=== PATIENT | female | born 1995 ===

== ENCOUNTER 2020-08-31 07:33 | Emergency (ER) | payer SELFPAY ==
[2020-08-31 07:39] VITALS: BP 157/65
[2020-08-31 09:51] LABS: Bilirubin,Urine NEG (Negative); Blood,Urine NEG (Negative); Color,Urine Yellow (Yellow); Mucus,Urine 3+ /HPF
[2020-08-31 09:56] LABS: HCG Qualitative,Urine Negative (Negative)
--- NOTE | 2020-08-31 10:07 | Event Note ---
ED Screening Note Date of service: 08/31/20 Time: 10:05 ED Screening Note: Patient complains of lower abdominal pain and cramping Denies vaginal bleeding or urinary symptoms States pain radiates to her low back Tenderness to palpation of the lower abdomen and periumbilical area noted on exam This initial assessment/diagnostic orders/clinical plan/treatment(s) is/are subject to change based on patients health status, clinical progression and re- assessment by fellow clinical providers in the ED. Further treatment and workup at subsequent clinical providers discretion. Patient/guardian urged not to elope from the ED as their condition may be serious if not clinically assessed and managed. Initial orders include: Labs
[2020-08-31 10:45] LABS: Hematocrit 35.1 % (30.3-42.9); Hemoglobin 11.4 gm/dl (10.1-14.3); Mean Corpuscular HGB Conc 33 % (30-34); Mean Corpuscular Volume 72 fl (79-97); Platelet Count 335 K/mm3 (140-440); Red Blood Count 4.86 M/mm3 (3.65-5.03); Red Cell Distribution Width 16.6 % (13.2-15.2)
[2020-08-31 11:05] LABS: Alanine Aminotransferase 21 units/L (7-56); Albumin 4.3 g/dL (3.9-5); Blood Urea Nitrogen 7 mg/dL (7-17); Calcium 9.5 mg/dL (8.4-10.2); Hemolysis Index 0
[2020-08-31 11:14] LABS: BUN/Creatinine Ratio 12
[2020-08-31] MEDS ORDERED: KETOROLAC 10 MG TAB PO ONE (11:31)
--- NOTE | 2020-08-31 11:42 | Emergency Department Report ---
ED Female HPI - General Chief complaint: Abdominal Pain Stated complaint: PELVIC PAIN Time Seen by Provider: 08/31/20 11:15 Source: patient Mode of arrival: Ambulatory Limitations: No Limitations - History of Present Illness Initial comments: Patient is a 25-year-old female presents emergency room complaints of pelvic pain that began 5 days ago. She denies any dysuria, urinary frequency, dark urine, odor to the urine, nausea, vomiting, diarrhea, fever, vaginal bleeding, vaginal discharge, vaginal irritation or odor. She states that she has irre gular menstrual cycles and previously used to have an IUD but no longer has one. She states that she has an PHYSICIAN GYNECOLOGIST Dr. Baker who she last saw in May and she states that she had a full work-up at that time but was not having pelvic pain then. She states that she is sexually active without protection with only one partner. She denies any concerns for STDs and states that she was just tested in May and does not want any testing or prophylactic treatment. She denies any past medical history. No allergies to medications. - Related Data Previous Rx's Medication Instructions Recorded Last Taken Type Naproxen [EC-Naprosyn] 500 mg PO BID PRN #14 tablet. 08/31/20 Unknown Rx cephALEXin [Keflex] 500 mg PO BID 7 Days #14 cap 08/31/20 Unknown Rx Allergies Allergy/AdvReac Type Severity Reaction Status Date / Time No Known Allergies Allergy Unverified 08/31/20 07:36 ED Review of Systems ROS: Stated complaint: PELVIC PAIN Other details as noted in HPI Comment: All other systems reviewed and negative ED Past Medical Hx - Past Medical History Previous Medical History?: No - Surgical History Past Surgical History?: No - Social History Smoking Status: Never Smoker Substance Use Type: None - Medications Home Medications: Home Medications Medication Instructions Recorded Confirmed Last Taken Type Naproxen [EC-Naprosyn] 500 mg PO BID PRN #14 tablet. 08/31/20 Unknown Rx cephALEXin [Keflex] 500 mg PO BID 7 Days #14 cap 08/31/20 Unknown Rx ED Physical Exam - General Limitations: No Limitations General appearance: alert, in no apparent distress - Head Head exam: Present: atraumatic, normocephalic - Eye Eye exam: Present: normal appearance - ENT ENT exam: Present: mucous membranes moist - Respiratory Respiratory exam: Present: normal lung sounds bilaterally. Absent: respiratory distress, wheezes, rales, rhonchi, stridor, chest wall tenderness, accessory muscle use, decreased breath sounds, prolonged expiratory - Cardiovascular Cardiovascular Exam: Present: regular rate, normal rhythm, normal heart sounds. Absent: systolic murmur, diastolic murmur, rubs, gallop - GI/Abdominal GI/Abdominal exam: Present: soft, tenderness (suprapubic), normal bowel sounds. Absent: distended, guarding, rebound, rigid - Neurological Exam Neurological exam: Present: alert, oriented X3 - Psychiatric Psychiatric exam: Present: normal affect, normal mood - Skin Skin exam: Present: warm, dry, intact ED Course Vital Signs 08/31/20 08/31/20 07:36 11:40 Temperature 98.4 F Pulse Rate 86 Respiratory 18 18 Rate Blood Pressure 157/65 O2 Sat by Pulse 98 Oximetry ED Medical Decision Making - Lab Data Result diagrams: 08/31/20 10:08 08/31/20 10:05 Lab Results 08/31/20 08/31/20 08/31/20 Range/Units 10:05 10:08 Unknown WBC 9.4 (4.5-11.0) K/mm3 RBC 4.86 (3.65-5.03) M/mm3 Hgb 11.4 (10.1-14.3) gm/dl Hct 35.1 (30.3-42.9) % MCV 72 L (79-97) fl MCH 24 L (28-32) pg MCHC 33 (30-34) % RDW 16.6 H (13.2-15.2) % Plt Count 335 (140-440) K/mm3 Baso % (Auto) [employer] Add Manual Diff Complete Total Counted 100 Seg Neuts % (Manual) 75.0 H (40.0-70.0) % Lymphocytes % (Manual) 22.0 (13.4-35.0) % Monocytes % (Manual) 2.0 (0.0-7.3) % Eosinophils % (Manual) 1.0 (0.0-4.3) % Nucleated RBC % Not Reportable Seg Neutrophils # Man 7.1 (1.8-7.7) K/mm3 Band Neutrophils # 0.0 K/mm3 Lymphocytes # (Manual) 2.1 (1.2-5.4) K/mm3 Abs React Lymphs (Man) 0.0 K/mm3 Monocytes # (Manual) 0.2 (0.0-0.8) K/mm3 Eosinophils # (Manual) 0.1 (0.0-0.4) K/mm3 Basophils # (Manual) 0.0 (0.0-0.1) K/mm3 Metamyelocytes # 0.0 K/mm3 Myelocytes # 0.0 K/mm3 Promyelocytes # 0.0 K/mm3 Blast Cells # 0.0 K/mm3 WBC Morphology Not Reportable Hypersegmented Neuts Not Reportable Hyposegmented Neuts Not Reportable Hypogranular Neuts Not Reportable Smudge Cells Not Reportable Toxic Granulation Not Reportable Toxic Vacuolation Not Reportable Dohle Bodies Not Reportable Pelger-Huet Anomaly Not Reportable Gigi Rods Not Reportable Platelet Estimate Consistent w auto Clumped Platelets Not Reportable Plt Clumps, EDTA Not Reportable Large Platelets Not Reportable Giant Platelets Not Reportable Platelet Satelliting Not Reportable Plt Morphology Comment Not Reportable RBC Morphology Not Reportable Dimorphic RBCs Not Reportable Polychromasia Not Reportable Hypochromasia 1+ Poikilocytosis Not Reportable Anisocytosis Not Reportable Microcytosis Not Reportable Macrocytosis Not Reportable Spherocytes Not Reportable Pappenheimer Bodies Not Reportable Sickle Cells Not Reportable Target Cells Not Reportable Tear Drop Cells Not Reportable Ovalocytes Not Reportable Helmet Cells Not Reportable Becerra-Meridian Bodies Not Reportable [place] Rings Not Reportable [place] Cells Not Reportable Bite Cells Not Reportable Crenated Cell Not Reportable Elliptocytes 1+ Acanthocytes (Spur) Not Reportable Rouleaux Not Reportable Hemoglobin C Crystals Not Reportable Schistocytes Few Malaria parasites Not Reportable Virgilio Bodies Not Reportable Hem Pathologist Commnt No Sodium 143 (137-145) mmol/L Potassium 4.5 (3.6-5.0) mmol/L Chloride 106.7 (98-107) mmol/L Carbon Dioxide 28 (22-30) mmol/L Anion Gap 13 mmol/L BUN 7 (7-17) mg/dL Creatinine 0.6 (0.6-1.2) mg/dL Estimated GFR > 60 ml/min BUN/Creatinine Ratio 12 % Glucose 92 (65-100) mg/dL Calcium 9.5 (8.4-10.2) mg/dL Total Bilirubin 0.40 (0.1-1.2) mg/dL AST 20 (5-40) units/L ALT 21 (7-56) units/L Alkaline Phosphatase 86 (35-129) units/L Total Protein 7.8 (6.3-8.2) g/dL Albumin 4.3 (3.9-5) g/dL Albumin/Globulin Ratio 1.2 % Lipase 21 (13-60) units/L Urine Color Yellow (Yellow) Urine Turbidity Clear (Clear) Urine pH 6.0 (5.0-7.0) Ur Specific [place] 1.030 (1.003-1.030) Urine Protein 30 mg/dl (Negative) mg/dL Urine Glucose (UA) Neg (Negative) mg/dL Urine Ketones Neg (Negative) mg/dL Urine Blood Neg (Negative) Urine Nitrite Neg (Negative) Urine Bilirubin Neg (Negative) Urine Urobilinogen 2.0 (<2.0) mg/dL Ur Leukocyte Esterase Tr (Negative) Urine WBC (Auto) 9.0 H (0.0-6.0) /HPF Urine RBC (Auto) 8.0 (0.0-6.0) /HPF U Epithel Cells (Auto) 9.0 (0-13.0) /HPF Urine Mucus 3+ /HPF Urine HCG, Qual Negative (Negative) - Radiology Data Radiology results: report reviewed Ordering Physician: MAYE ALEJANDRA Date of Service: 08/31/20 Procedure(s): US transvaginal Accession Number(s): [id number] cc: MAYE ALEJANDRA EXAMINATION: Complete pelvic ultrasound, 08/31/2020 CLINICAL INFORMATION: Pelvic pain COMPARISON: None. FINDINGS: The uterus is normal in size measuring 9.2 x 4.5 x 5.4 cm. The endometrial thickness measures a maximum of 7 mm. The bilateral adnexal regions appear within normal limits. There is a 2.3 cm left adnexal cyst. Doppler flow is demonstrated to both adnexal regions. There is a trace amount of free pelvic fluid. IMPRESSION: 1. No sonographic evidence of acute intrapelvic abnormality. 2. Left adnexal cyst. Signer Name: Andreina Perez MD Signed: 08/31/2020 12:26 PM Workstation Name: [id number] Transcribed By: EB Dictated By: Andreina Perez MD Electronically Authenticated By: Andreina Perez MD Signed Date/Time: 08/31/20 1226 DD/ 1223 TD/TT: - Medical Decision Making Patient is a 25-year-old female presents emergency room complaints of pelvic pain that began 5 days ago. She denies any dysuria, urinary frequency, dark urine, odor to the urine, nausea, vomiting, diarrhea, fever, vaginal bleeding, vaginal discharge, vaginal irritation or odor. She states that she has irregula r menstrual cycles and previously used to have an IUD but no longer has one. She states that she has an PHYSICIAN GYNECOLOGIST Dr. Baker who she last saw in May and she states that she had a full work-up at that time but was not having pelvic pain then. She states that she is sexually active without protection with only one partner. She denies any concerns for STDs and states that she was just tested in May and does not want any testing or prophylactic treatment. She denies any past medical history. No allergies to medications. VSS. On exam patient has suprapubic abdominal tenderness to palpation, no guarding, no rebound, no rigidity, normal bowel sounds, no peritoneal signs. UA shows evid ence of mild UTI. Pelvic ultrasound: 1. No sonographic evidence of acute intrapelvic abnormality. 2. Left adnexal cyst. Patient given p.o. Toradol in the emergency department and symptoms improved and she was feeling much better and ready to go home. Discussed all results with patient and answered questions. Discussed the importance of PHYSICIAN GYNECOLOGIST follow-up. Patient given prescription for Keflex and naproxen. Advised patient please take medication as prescribed. Increase your water intake. Follow-up with your primary care doctor. Follow-up with your PHYSICIAN GYNECOLOGIST. Return to emergency room for any new or worsening symptoms. - Differential Diagnosis Ovarian cyst, fibroids, UTI, endometriosis, adenomyosis, STD, PID Critical care attestation.: If time is entered above; I have spent that time in minutes in the direct care of this critically ill patient, excluding procedure time. ED Disposition Clinical Impression: Pelvic pain, Left ovarian cyst UTI (urinary tract infection) Qualifiers: Urinary tract infection type: acute cystitis Hematuria presence: without hematuria Qualified Code(s): N30.00 - Acute cystitis without hematuria Disposition: TO HOME OR SELFCARE Is pt being admited?: No Does the pt Need Aspirin: No Condition: Stable Instructions: Urinary Tract Infection, Adult, Ovarian Cyst, Abdominal Pain (ED) Additional Instructions: please take medication as prescribed. Increase your water intake. Follow-up with your primary care doctor. Follow-up with your PHYSICIAN GYNECOLOGIST. Return to emergency room for any new or worsening symptoms. Prescriptions: Naproxen [EC-Naprosyn] 500 mg PO BID PRN #14 tablet.dr PRN Reason: pain cephALEXin [Keflex] 500 mg PO BID 7 Days #14 cap Referrals: PRIMARY CAREMD [Primary Care Provider] - 2-3 Days TEN SUN MD [Staff Physician] - 2-3 Days Time of Disposition: 12:44 Print Language: KYRGYZ
--- NOTE | 2020-08-31 12:30 | Ultrasound Report ---
EXAMINATION: Complete pelvic ultrasound, 08/31/2020 CLINICAL INFORMATION: Pelvic pain COMPARISON: None. FINDINGS: The uterus is normal in size measuring 9.2 x 4.5 x 5.4 cm. The endometrial thickness measures a maxim um of 7 mm. The bilateral adnexal regions appear within normal limits. There is a 2.3 cm left adnexal cyst. Doppl er flow is demonstrated to both adnexal regions. There is a trace amount of free pelvic fluid. IMPRESSION: 1. No sonographic evidence of acute intrapelvic abnormality. 2. Left adnexal cyst. Signer Name: Andreina Perez MD Signed: 08/31/2020 12:26 PM Workstation Name: [id number]
[2020-08-31 14:32] LABS: Total Cells Counted 100
[2020-08-31 14:33] LABS: Hypochromasia 1+
[2020-08-31 14:34] LABS: Platelet Estimate Consistent w Auto; Schistocytes Few
== END 2020-08-31 13:23 | disposition home or self-care (01) ==
LOC: ED 07:33
DX: N39.0 Urinary tract infection, site not specified (principal); R10.2 Pelvic and perineal pain; N83.202 Unspecified ovarian cyst, left side; Z79.899 Other long term (current) drug therapy
CPT/HCPCS: 36415; 76830; 76856; 80053; 81001; 81025; 83690; 85007; 85025; 87086

== ENCOUNTER 2020-09-25 05:43 | Emergency (ER) | payer SELFPAY ==
--- NOTE | 2020-09-25 05:57 | Event Note ---
ED Screening Note Date of service: 09/25/20 Time: 05:56 ED Screening Note: Patient is a 25-year-old female who presents for right upper chest and right flank pain x3 days. Pain described as 5/10 with urinary frequency and dysuria. Patient denies fevers or chills. Denies history of GERD or gallstones. Symptoms are exacerbated by p.o. intake. Symptoms are relieved by nothing tried. There is associated nausea no vomiting at this time. This initial assessment/diagnostic orders/clinical plan/treatment(s) is/are subject to change based on patients health status, clinical progression and re- assessment by fellow clinical providers in the ED. Further treatment and workup at subsequent clinical providers discretion. Patient/guardian urged not to elope from the ED as their condition may be serious if not clinically assessed and managed. Initial orders include: CMP, CBC, Lipase, UA, HCG
[2020-09-25] MEDS ORDERED: SODIUM CHLORIDE 0.9% 1000 ML 1,000 ML IV ONE (06:24)
[2020-09-25] MEDS ORDERED: ONDANSETRON 4 MG/2 ML INJ IV ONE (06:24)
[2020-09-25] MEDS ORDERED: MORPHINE 2 MG/1 ML INJ IV ONE (06:24)
[2020-09-25 06:28] LABS: Basophils % (Auto) 0.2 % (0.0-1.8); Eosinophils # (Auto) 0.1 K/mm3 (0.0-0.4); Eosinophils % (Auto) 1.2 % (0.0-4.3); Hematocrit 35.1 % (30.3-42.9); Hemoglobin 11.3 gm/dl (10.1-14.3); Lymphocytes # (Auto) 2.1 K/mm3 (1.2-5.4); Lymphocytes % (Auto) 23.4 % (13.4-35.0); Mean Corpuscular HGB Conc 32 % (30-34); Mean Corpuscular Volume 72 fl (79-97); Monocytes # (Auto) 0.4 K/mm3 (0.0-0.8); Monocytes % (Auto) 4.5 % (0.0-7.3); Platelet Count 346 K/mm3 (140-440); Red Blood Count 4.85 M/mm3 (3.65-5.03); Red Cell Distribution Width 17.1 % (13.2-15.2)
--- NOTE | 2020-09-25 06:29 | Emergency Department Report ---
ED General Adult HPI - General Chief complaint: Chest Pain Stated complaint: CHEST/SIDE/BACK PAIN Time Seen by Provider: 09/25/20 06:09 Source: patient Mode of arrival: Ambulatory Limitations: No Limitations - History of Present Illness Initial comments: This is the second time in approximately 1 month for this 25-year old lady to present to the emergency department with multiple complaints of subacute nature. This time she states that she has had diffuse pain involving both sides of the pelvis anterior abdomen both sides of the lateral flank and the anterior chest but not the arms for 3 to 4 days. She states that the pain is dull and constant. She cannot describe the point of maximum intensity. She states that she has "foamy" stools. She thinks he might of had a chill but is sure she did not have a fever. She does not describe respiratory symptoms. She states that she is "not urinating". Patient states that she has had 3 children, no surgery and takes no regular medication. Apparently she does not see primary care. She was referred to [facility] CON[facility]OR OPERATOR after her last visit. At that time she did have multiple [employer] CONVEYOR OPERATOR complaints and was found to have an ovarian cyst: Patient is a 25-year-old female presents emergency room complaints of pelvic pain that began 5 days ago. She denies any dysuria, urinary frequency, dark urine, odor to the urine, nausea, vomiting, diarrhea, fever, vaginal bleeding, vaginal discharge, vaginal irritation or odor. She states that she has irregular menstrual cycles and previously used to have an IUD but no longer has one. She states that she has an BUS MECHANIC Dr. Baker who she last saw in May and she states that she had a full work-up at that time but was not having pelvic pain then. She states that she is sexually active without protection with only one partner. She denies any concerns for STDs and states that she was just tested in May and does not want any testing or prophylactic treatment. She denies any past medical history. No allergies to medications. VSS. On exam patient has suprapubic abdominal tenderness to palpation, no guarding, no rebound, no rigidity, normal bowel sounds, no peritoneal signs. UA shows evidence of mild UTI. Pelvic ultrasound: 1. No sonographic evidence of acute intrapelvic abnormality. 2. Left adnexal cyst. Patient given p.o. Toradol in the emergency department and symptoms improved and she was feeling much better and ready to go home. Discussed all results with patient and answered questions. Discussed the importance of BUS MECHANIC follow-up. Patient given prescription for Keflex and naproxen. Advised patient please take medication as prescribed. Increase your water intake. Follow-up with your primary care doctor. Follow-up with your BUS MECHANIC. Return to emergency room for any new or worsening symptoms. -: Gradual, days(s) (3 to 4 days) Location: chest, back (Lateral flank), abdomen Radiation: non-radiation Quality: aching Improves with: none Worsens with: none Associated Symptoms: denies other symptoms, fever/chills (See above), other (See above, foamy stools, decreased urine output) Treatments Prior to Arrival: none - Related Data Previous Rx's Medication Instructions Recorded Last Taken Type Naproxen [EC-Naprosyn] 500 mg PO BID PRN #14 tablet. 08/31/20 Unknown Rx cephALEXin [Keflex] 500 mg PO BID 7 Days #14 cap 08/31/20 Unknown Rx cefUROXime [Ceftin] 250 mg PO Q12H #10 tablet 09/25/20 Unknown Rx traMADoL [Ultram] 50 mg PO Q6HR PRN #14 tablet 09/25/20 Unknown Rx Allergies Allergy/AdvReac Type Severity Reaction Status Date / Time No Known Allergies Allergy Verified 09/25/20 06:36 ED Review of Systems ROS: Stated complaint: CHEST/SIDE/BACK PAIN Other details as noted in HPI Constitutional: denies: chills, fever Eyes: denies: eye pain, eye discharge, vision change ENT: denies: ear pain, throat pain Respiratory: denies: cough, shortness of breath, wheezing Cardiovascular: chest pain. denies: palpitations Endocrine: no symptoms reported Gastrointestinal: abdominal pain, other ("Foamy stools). denies: nausea, diarrhea Genitourinary: other (Decreased output). denies: urgency, dysuria, discharge Musculoskeletal: back pain (Lateral flank). denies: joint swelling, arthralgia Skin: denies: rash, lesions Neurological: denies: headache, weakness, paresthesias Psychiatric: denies: anxiety, depression Hematological/Lymphatic: denies: easy bleeding, easy bruising ED Past Medical Hx - Past Medical History Previous Medical History?: No - Surgical History Past Surgical History?: No - Social History Smoking Status: Never Smoker Substance Use Type: None - Medications Home Medications: Home Medications Medication Instructions Recorded Confirmed Last Taken Type Naproxen [EC-Naprosyn] 500 mg PO BID PRN #14 tablet. 08/31/20 Unknown Rx cephALEXin [Keflex] 500 mg PO BID 7 Days #14 cap 08/31/20 Unknown Rx cefUROXime [Ceftin] 250 mg PO Q12H #10 tablet 09/25/20 Unknown Rx traMADoL [Ultram] 50 mg PO Q6HR PRN #14 tablet 09/25/20 Unknown Rx ED Physical Exam - General Limitations: Physical Limitation General appearance: alert, in no apparent distress, obese - Head Head exam: Present: atraumatic, normocephalic - Eye Eye exam: Present: normal appearance. Absent: PERRL, EOMI, scleral icterus - ENT ENT exam: Present: mucous membranes moist - Neck Neck exam: Present: normal inspection - Respiratory Respiratory exam: Present: normal lung sounds bilaterally. Absent: respiratory distress - Cardiovascular Cardiovascular Exam: Present: regular rate, normal rhythm. Absent: systolic murmur, diastolic murmur, rubs, gallop - GI/Abdominal GI/Abdominal exam: Present: soft, normal bowel sounds. Absent: distended, tenderness, guarding, rebound, rigid - Extremities Exam Extremities exam: Present: normal inspection. Absent: calf tenderness - Back Exam Back exam: Present: normal inspection. Absent: CVA tenderness (R), CVA tenderness (L), muscle spasm, paraspinal tenderness, vertebral tenderness - Neurological Exam Neurological exam: Present: alert, oriented X3, CN II-XII intact. Absent: motor sensory deficit - Psychiatric Psychiatric exam: Present: normal mood, anxious - Skin Skin exam: Present: warm, dry, intact, normal color. Absent: rash ED Course Vital Signs 09/25/20 09/25/20 09/25/20 05:47 06:15 06:31 Temperature 98.5 F Pulse Rate 69 78 59 L Respiratory 18 18 19 Rate Blood Pressure 155/68 144/90 126/63 Blood Pressure [Left] O2 Sat by Pulse 99 99 100 Oximetry 09/25/20 07:23 Temperature 97.6 F Pulse Rate 72 Respiratory 15 Rate Blood Pressure Blood Pressure 128/74 [Left] O2 Sat by Pulse 99 Oximetry - Reevaluation(s) Reevaluation #1: Patient is exam remains benign. She is found in no distress times several. CT was negative. Appropriate for outpatient referral. She will be treated empirically for UTI given analgesia. 09/25/20 10:19 ED Medical Decision Making - Lab Data Result diagrams: 09/25/20 06:04 09/25/20 06:51 - EKG Data -: EKG Interpreted by Me EKG shows normal: sinus rhythm, axis, intervals, QRS complexes, ST-T waves Rate: normal - EKG Data Mild sinus arrhythmia 09/25/20 06:36 Critical care attestation.: If time is entered above; I have spent that time in minutes in the direct care of this critically ill patient, excluding procedure time. ED Disposition Clinical Impression: Atypical chest pain Abdominal pain Qualifiers: Abdominal location: generalized Qualified Code(s): R10.84 - Generalized abdominal pain UTI (urinary tract infection) Qualifiers: Urinary tract infection type: site unspecified Hematuria presence: without hematuria Qualified Code(s): N39.0 - Urinary tract infection, site not specified Disposition: TO HOME OR SELFCARE Is pt being admited?: No Does the pt Need Aspirin: No Instructions: Urinary Tract Infection, Adult, [id number], Abdominal Pain, Adult, [id number], Nonspecific Chest Pain, Adult, [id number], Chest Pain (ED) Additional Instructions: Return any acute change or worsening symptoms. Prescriptions: cefUROXime [Ceftin] 250 mg PO Q12H #10 tablet traMADoL [Ultram] 50 mg PO Q6HR PRN #14 tablet PRN Reason: Pain Referrals: PRIMARY CARE, [Primary Care Provider] - 3-5 Days [facility] [Provider Group] - 2-3 Days Time of Disposition: 10:21 HEART Score - HEART Score History: Slightly suspicious EKG: Normal Age: < 45 Risk factors: No known risk factors Troponin: Troponin T < 0.010 ng/mL (0.00-0.029) 09/25/20 06:51 Troponin: < normal limit HEART Score: 0 - Critical Actions Critical Actions: 0-3 pts:0.9-1.7%risk of adverse cardiac event.Candidate for discharge JASKARAN score - Jaskaran Score Age > 65: (0) No Aspirin use within the Past 7 Days: (0) No 3 or more CAD Risk Factors: (0) No 2 or more Angina events in past 24 hrs: (0) No Known CAD with more than 50% Stenosis: (0) No Elevated Cardiac Markers: (0) No ST Deviation Greater than 0.5mm: (0) No JASKARAN Score: 0
[2020-09-25] MEDS ORDERED: diphenhydrAMINE 50 MG/ML VIAL ONE (06:34)
[2020-09-25] MEDS ORDERED: diphenhydrAMINE 50 MG/ML VIAL IV ONE (06:34)
[2020-09-25 06:41] LABS: Alanine Aminotransferase 13 units/L (7-56); Albumin 4.1 g/dL (3.9-5); Blood Urea Nitrogen 12 mg/dL (7-17); Calcium 8.7 mg/dL (8.4-10.2); Hemolysis Index 2
[2020-09-25 06:44] LABS: BUN/Creatinine Ratio 17
[2020-09-25 07:39] LABS: HCG Qualitative,Urine Negative (Negative)
[2020-09-25 07:41] LABS: Bilirubin,Urine NEG (Negative); Blood,Urine SM (Negative); Color,Urine Yellow (Yellow); Mucus,Urine 2+ /HPF; Protein,Urine <15 mg/dL mg/dL (Negative); Urobilinogen,Urine < 2.0 mg/dL (<2.0)
[2020-09-25 07:45] LABS: Alanine Aminotransferase 14 units/L (7-56); Albumin 4.1 g/dL (3.9-5); Creatine Kinase MB 1.3 ng/mL (0.0-4.0)
[2020-09-25 07:48] LABS: Bilirubin,Direct < 0.2 mg/dL (0-0.2)
[2020-09-25 08:02] LABS: Blood Urea Nitrogen 12 mg/dL (7-17); Calcium 8.7 mg/dL (8.4-10.2); Hemolysis Index 6
[2020-09-25 08:23] LABS: BUN/Creatinine Ratio 17
--- NOTE | 2020-09-25 10:02 | Cat Scan Report ---
CT ABDOMEN AND PELVIS WITH CONTRAST INDICATION / CLINICAL INFORMATION: Diffuse abdominal pain. TECHNIQUE: Axial CT images were obtained through the abdomen and pelvis after 100 cc Omnipaque [address] scans at this location are performed using CT dose reduction for ALARA by means of automated exposure control. COMPARISON: None available. FINDINGS: LOWER CHEST: No significant abnormality. LIVER: No significant abnormality. GALLBLADDER: No significant abnormality. BILE DUCTS: No significant abnormality. PANCREAS: No significant abnormality. SPLEEN: No significant abnormality. ADRENALS: No significant abnormality. RIGHT KIDNEY and URETER: No significant abnormality. LEFT KIDNEY and URETER: No significant abnormality. STOMACH and SMALL BOWEL: No significant abnormality. COLON: No significant abnormality. APPENDIX: No significant abnormality. PERITONEUM: No free fluid. No free air. No fluid collection. LYMPH NODES: No significant adenopathy. AORTA and ARTERIES: No significant abnormality. IVC and VEINS: No significant abnormality. URINARY BLADDER: No significant abnormality. REPRODUCTIVE ORGANS: No significant abnormality. ADDITIONAL FINDINGS: None. SKELETAL SYSTEM: No acute abnormality. IMPRESSION: 1. No significant abnormality. Signer Name: Grayson Umanzor MD Signed: 09/25/2020 9:57 AM Workstation Name: [id number]
[2020-09-25 10:44] VITALS: BP 137/69
== END 2020-09-25 10:44 | disposition home or self-care (01) ==
LOC: ED 05:43
DX: N39.0 Urinary tract infection, site not specified (principal); R07.89 Other chest pain; R10.9 Unspecified abdominal pain; Z79.899 Other long term (current) drug therapy
CPT/HCPCS: 36415; 74177; 80048; 80053; 80076; 81001; 81025; 82550; 82553; 83690; 83735; 84484; 84702; 85025; 93005; 96361; 96374; 96375; 99284; J1200; J2270; J2405; J7030; Q9967

== ENCOUNTER 2021-03-29 22:50 | Emergency (ER) | payer SELFPAY ==
[2021-03-29 23:04] VITALS: BP 160/90
--- NOTE | 2021-03-29 23:59 | XRay Report ---
CHEST 2 VIEWS INDICATION: chestpain. COMPARISON: None FINDINGS: SUPPORT DEVICES: None. HEART: Within normal limits. LUNGS/PLEURA: No acute air space or interstitial disease. No pneumothorax. ADDITIONAL FINDINGS: None. IMPRESSION: 1. No acute findings. Signer Name: Corey Polanco MD Signed: 03/29/2021 11:54 PM Workstation Name: [id number]
--- NOTE | 2021-03-30 01:40 | Emergency Department Report ---
ED General Adult HPI - General Chief complaint: Chest Pain Stated complaint: CHEST PAIN Source: patient Mode of arrival: Ambulatory Limitations: No Limitations - History of Present Illness Initial comments: Patient is a 25-year-old white female with a history of morbid obesity, anxiety and chronic costochondritis who presents to the ED with complaints of persistent elevated heart rate and anterior chest wall pain for the last 3 months, worse in the last 2 hours prior to arrival in the ED. Patient states that the chest pain has been intermittent and prior to arrival in the ED her heart rate was significantly elevated and that she started feeling tingling sensation in both upper and lower extremities. Patient denies shortness of breath, diaphoresis, nausea, vomiting, abdominal pain, traumatic injury, heavy lifting, back pain, change in vision, dizziness, syncope, cough, fever and chills MD Complaint: Elevated heart rate, chronic chest wall pain; anxiety -: Gradual, month(s) (3) Location: chest Radiation: non-radiation Severity scale (0 -10): 6 Quality: aching, sharp Consistency: intermittent Improves with: none Worsens with: none Associated Symptoms: denies other symptoms, chest pain. denies: confusion, cough, diaphoresis, fever/chills, headaches, loss of appetite, malaise, nausea/vomiting, rash, seizure, shortness of breath, syncope, weakness Treatments Prior to Arrival: none - Related Data Previous Rx's Medication Instructions Recorded Last Taken Type cephALEXin [Keflex] 500 mg PO BID 7 Days #14 cap 08/31/20 Unknown Rx cefUROXime [Ceftin] 250 mg PO Q12H #10 tablet 09/25/20 Unknown Rx traMADoL [Ultram] 50 mg PO Q6HR PRN #14 tablet 09/25/20 Unknown Rx Famotidine [Pepcid] 20 mg PO BID #60 tablet 03/30/21 Unknown Rx Naproxen [EC-Naprosyn] 500 mg PO BID PRN #20 tablet. 03/30/21 Unknown Rx hydrOXYzine PAMOATE [Vistaril] 50 mg PO QHS PRN #30 capsule 03/30/21 Unknown Rx Allergies Allergy/AdvReac Type Severity Reaction Status Date / Time No Known Allergies Allergy Verified 09/25/20 06:36 ED Review of Systems ROS: Stated complaint: CHEST PAIN Other details as noted in HPI Constitutional: denies: chills, fever, malaise, weakness Eyes: denies: eye pain, eye discharge, vision change ENT: denies: ear pain, throat pain Respiratory: denies: cough, shortness of breath, wheezing Cardiovascular: chest pain (Anterior chest pain intermittently), other (Elevated heart rate). denies: palpitations Endocrine: no symptoms reported Gastrointestinal: denies: abdominal pain, nausea, vomiting, diarrhea Genitourinary: denies: urgency, dysuria, discharge Musculoskeletal: denies: back pain, joint swelling, arthralgia Skin: denies: rash, lesions Neurological: denies: headache, weakness, paresthesias Psychiatric: anxiety. denies: depression Hematological/Lymphatic: denies: easy bleeding, easy bruising ED Past Medical Hx - Past Medical History Previous Medical History?: No Hx Psychiatric Treatment: Yes (Anxiety) Additional medical history: Morbid Obesity, chronic costochondritis - Surgical History Past Surgical History?: No - Social History Smoking Status: Never Smoker Substance Use Type: None - Medications Home Medications: Home Medications Medication Instructions Recorded Confirmed Last Taken Type cephALEXin [Keflex] 500 mg PO BID 7 Days #14 cap 08/31/20 Unknown Rx cefUROXime [Ceftin] 250 mg PO Q12H #10 tablet 09/25/20 Unknown Rx traMADoL [Ultram] 50 mg PO Q6HR PRN #14 tablet 09/25/20 Unknown Rx Famotidine [Pepcid] 20 mg PO BID #60 tablet 03/30/21 Unknown Rx Naproxen [EC-Naprosyn] 500 mg PO BID PRN #20 tablet. 03/30/21 Unknown Rx hydrOXYzine PAMOATE [Vistaril] 50 mg PO QHS PRN #30 capsule 03/30/21 Unknown Rx ED Physical Exam - General Limitations: No Limitations General appearance: alert, in no apparent distress, anxious - Head Head exam: Present: atraumatic, normocephalic - Eye Eye exam: Present: normal appearance, PERRL, EOMI Pupils: Present: normal accommodation - ENT ENT exam: Present: normal exam, normal orophraynx, mucous membranes moist, TM's normal bilaterally, normal external ear exam - Neck Neck exam: Present: normal inspection, full ROM - Respiratory Respiratory exam: Present: normal lung sounds bilaterally, chest wall tenderness (Palpable reproducible anterior chest wall musculoskeletal tenderness). Absent: respiratory distress, wheezes, rales, rhonchi, accessory muscle use - Cardiovascular Cardiovascular Exam: Present: regular rate, normal rhythm, normal heart sounds. Absent: systolic murmur, diastolic murmur, rubs, gallop - GI/Abdominal GI/Abdominal exam: Present: soft, normal bowel sounds. Absent: tenderness, guarding, hyperactive bowel sounds, hypoactive bowel sounds, organomegaly, bruit - Extremities Exam Extremities exam: Present: normal inspection, full ROM, normal capillary refill - Back Exam Back exam: Present: normal inspection, full ROM. Absent: tenderness, CVA tenderness (R), CVA tenderness (L), muscle spasm, paraspinal tenderness, vertebral tenderness - Neurological Exam Neurological exam: Present: alert, oriented X3, CN II-XII intact, normal gait, reflexes normal - Psychiatric Psychiatric exam: Present: normal affect, normal mood, anxious - Skin Skin exam: Present: warm, dry, intact, normal color. Absent: rash ED Course Vital Signs 03/29/21 03/30/21 03/30/21 22:59 01:43 02:20 Temperature 99.3 F Pulse Rate 123 H 66 Respiratory 16 16 18 Rate Blood Pressure 160/90 O2 Sat by Pulse 99 100 96 Oximetry ED Medical Decision Making - Radiology Data Chest x-ray shows no acute cardiopulmonary abnormalities or pneumonitis - Medical Decision Making This is a 25-year-old white female with a history of morbid obesity, anxiety and chronic costochondritis who presents to the ED with complaints of persistent elevated heart rate and anterior chest wall pain for the last 3 months, worse in the last 2 hours prior to arrival in the ED. Patient states that the chest pain has been intermittent and prior to arrival in the ED her heart rate was significantly elevated and that she started feeling tingling sensation in both upper and lower extremities. In the ED, patient is alert and oriented x3 and is not in any distress but tachycardic and anxious in triage. Patient was treated for pain in the ED. Chest x-ray shows no acute cardiopulmonary abnormalities or pneumonitis. Patient patient's history and physical exam findings, patient symptoms are likely exacerbation of her chronic costochondritis and anxiety e xacerbation. Patient's heart score is 0. Patient does not take any anxiety medications at this time. On reevaluation, patient vital signs stabilized and tachycardia resolved. Patient was therefore discharged home on medications for anxiety and pain medications and advised to follow-up with her primary care physician in 5 to 7 days for reevaluation. Patient is advised to return to the ED immediately if symptoms get worse. - Differential Diagnosis Pneumonia; costochondritis; anxiety; GERD; muscle strain; ACS; PE; Critical care attestation.: If time is entered above; I have spent that time in minutes in the direct care of this critically ill patient, excluding procedure time. ED Disposition Clinical Impression: Muscle strain of anterior chest wall, Anxiety as acute reaction to exceptional stress GERD (gastroesophageal reflux disease) Qualifiers: Esophagitis presence: esophagitis presence not specified Qualified Code(s): K21.9 - Gastro-esophageal reflux disease without esophagitis Disposition: TO HOME OR SELFCARE Is pt being admited?: No Does the pt Need Aspirin: No Condition: Stable Instructions: Generalized Anxiety Disorder, Adult, Muscle Strain, [id number], Gastroesophageal Reflux Disease, Adult, [id number] Additional Instructions: Your symptoms are likely due to anxiety based on the history and physical exam findings. Chest x-ray shows no acute cardiopulmonary abnormalities or pneumonitis. Therefore take medications with food, drink plenty of fluids and follow-up with your primary care physician in 3 to 5 days for reevaluation. Return to the ED immediately if symptoms get worse. Prescriptions: hydrOXYzine PAMOATE [Vistaril] 50 mg PO QHS PRN #30 capsule PRN Reason: Anxiety Naproxen [EC-Naprosyn] 500 mg PO BID PRN #20 tablet. PRN Reason: pain Famotidine [Pepcid] 20 mg PO BID #60 tablet Referrals: [facility] [Provider Group] - 3-5 Days Time of Disposition: 01:38 Print Language: ICELANDIC
[2021-03-30] MEDS ORDERED: IBUPROFEN 600 MG TAB PO ONE (01:45)
[2021-03-30] MEDS ORDERED: FAMOTIDINE 20 MG TAB PO ONE (01:45)
[2021-03-30] MEDS ORDERED: hydrOXYzine PAMOATE 25 MG CAP PO ONE (01:46)
--- NOTE | 2021-03-30 13:38 | Electrocardiograph Report ---
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
== END 2021-03-30 02:20 | disposition home or self-care (01) ==
LOC: ED 22:50
DX: S29.011A Strain of muscle and tendon of front wall of thorax, initial encounter (principal); K21.9 Gastro-esophageal reflux disease without esophagitis; F41.9 Anxiety disorder, unspecified; E66.8 Other obesity; X58.XXXA Exposure to other specified factors, initial encounter; Y93.89 Activity, other specified; Y92.89 Other specified places as the place of occurrence of the external cause; Y99.8 Other external cause status
CPT/HCPCS: 71046; 93005; 99283; Q0177

== ENCOUNTER 2021-05-20 15:41 | Emergency (ER) | payer SELFPAY | END 2021-05-20 23:09 | disposition left against medical advice (07) | LOC: ED 15:41 | DX: R51.9 Headache, unspecified (principal); R07.9 Chest pain, unspecified; Z53.21 Procedure and treatment not carried out due to patient leaving prior to being seen by health care provider ==

== ENCOUNTER 2021-06-28 13:43 | Emergency (ER) | payer SELFPAY ==
[2021-06-28 14:35] VITALS: BP 118/75
--- NOTE | 2021-06-28 15:30 | Emergency Department Report ---
ED Female HPI - General Chief complaint: Urogenital-Female Stated complaint: PELVIC PAIN Time Seen by Provider: 06/28/21 14:40 Source: patient Mode of arrival: Ambulatory Limitations: No Limitations - History of Present Illness Initial comments: Patient is a 26-year-old female presents emergency room complaints of pelvic pain that began 4 days ago. She denies any vaginal bleeding, vaginal discharge, dysuria, urinary frequency, fever, nausea, vomiting, diarrhea, itching, burning, lesions or blisters. She states that she is rarely sexually active and denies any concerns for STDs. Past medical history of anxiety, costochondritis, obesity. No allergies to medications. Last menstrual cycle was in May. She states that she last saw [facility] in August and reports that they were in the process of starting to work her up for endometriosis but states that due to lack of insurance she was unable to undergo the testing. She denies ever having an abnormal Pap smear. - Related Data Previous Rx's Medication Instructions Recorded Last Taken Type cephALEXin [Keflex] 500 mg PO BID 7 Days #14 cap 08/31/20 Unknown Rx cefUROXime [Ceftin] 250 mg PO Q12H #10 tablet 09/25/20 Unknown Rx traMADoL [Ultram] 50 mg PO Q6HR PRN #14 tablet 09/25/20 Unknown Rx Famotidine [Pepcid] 20 mg PO BID #60 tablet 03/30/21 Unknown Rx Naproxen [EC-Naprosyn] 500 mg PO BID PRN #20 tablet. 03/30/21 Unknown Rx hydrOXYzine PAMOATE [Vistaril] 50 mg PO QHS PRN #30 capsule 03/30/21 Unknown Rx Allergies Allergy/AdvReac Type Severity Reaction Status Date / Time No Known Allergies Allergy Verified 09/25/20 06:36 ED Review of Systems ROS: Stated complaint: PELVIC PAIN Other details as noted in HPI Comment: All other systems reviewed and negative ED Past Medical Hx - Past Medical History Previous Medical History?: Yes Hx Psychiatric Treatment: Yes (Anxiety) Additional medical history: Morbid Obesity, chronic costochondritis - Social History Smoking Status: Never Smoker Substance Use Type: None - Medications Home Medications: Home Medications Medication Instructions Recorded Confirmed Last Taken Type cephALEXin [Keflex] 500 mg PO BID 7 Days #14 cap 08/31/20 Unknown Rx cefUROXime [Ceftin] 250 mg PO Q12H #10 tablet 09/25/20 Unknown Rx traMADoL [Ultram] 50 mg PO Q6HR PRN #14 tablet 09/25/20 Unknown Rx Famotidine [Pepcid] 20 mg PO BID #60 tablet 03/30/21 Unknown Rx Naproxen [EC-Naprosyn] 500 mg PO BID PRN #20 tablet. 03/30/21 Unknown Rx hydrOXYzine PAMOATE [Vistaril] 50 mg PO QHS PRN #30 capsule 03/30/21 Unknown Rx ED Physical Exam - General Limitations: No Limitations General appearance: alert, in no apparent distress - Head Head exam: Present: atraumatic, normocephalic - Eye Eye exam: Present: normal appearance - ENT ENT exam: Present: mucous membranes moist - Respiratory Respiratory exam: Present: normal lung sounds bilaterally. Absent: respiratory distress, wheezes, rales, rhonchi, stridor, chest wall tenderness, accessory muscle use, decreased breath sounds, prolonged expiratory - Cardiovascular Cardiovascular Exam: Present: regular rate, normal rhythm, normal heart sounds. Absent: systolic murmur, diastolic murmur, rubs, gallop - GI/Abdominal GI/Abdominal exam: Present: soft, tenderness (suprapubic), normal bowel sounds. Absent: distended, guarding, rebound, rigid - Neurological Exam Neurological exam: Present: alert, oriented X3 - Psychiatric Psychiatric exam: Present: normal affect, normal mood - Skin Skin exam: Present: warm, dry, intact ED Course Vital Signs 06/28/21 14:33 Temperature 97.9 F Pulse Rate 72 Respiratory 18 Rate Blood Pressure 118/75 O2 Sat by Pulse 99 Oximetry ED Medical Decision Making - Lab Data Result diagrams: 06/28/21 16:10 06/28/21 16:10 - Radiology Data Radiology results: report reviewed Ordering Physician: MAYE ALEJANDRA Date of Service: 06/28/21 Procedure(s): US transvaginal Accession Number(s): [id number] cc: MAYE ALEJANDRA Pelvic Ultrasound HISTORY: pelvic pain. TECHNIQUE: Grayscale and color imaging performed. COMPARISON: Pelvic ultrasound from 08/31/2020 FINDINGS: Transabdominal and endovaginal imaging was performed. Uterus measures 9.3 x 5.8 x 5.6 cm with endometrial echocomplex measuring 2.4 cm. Couple tiny hypoechoic areas are seen within the uterus but no definite gestational sac and certainly no pole identified. Both ovaries appear unremarkable. No pelvic free fluid identified. IMPRESSION: Uterine findings as above. Correlate with beta hCG level and if needed close ultrasound follow-up. Signer Name: Corey Polanco MD Signed: 06/28/2021 4:21 PM Workstation Name: [id number] Transcribed By: RAGHU Dictated By: Corey Polanco MD Electronically Authenticated By: Corey Polanco MD Signed Date/Time: 06/28/211620 DD/ 19 TD/TT: - Medical Decision Making Patient is a 26-year-old female presents emergency room complaints of pelvic pain that began 4 days ago. She denies any vaginal bleeding, vaginal discharge, dysuria, urinary frequency, fever, nausea, vomiting, diarrhea, itching, burning, lesions or blisters. She states that she is rarely sexually active and denies any concerns for STDs. Past medical history of anxiety, costochondritis, obesity. No allergies to medications. Last menstrual cycle was in May. She states that she last saw [facility] in August and reports that they were in the process of starting to work her up for endometriosis but states that due to lack of insurance she was unable to undergo the testing. She denies ever having an abnormal Pap smear. Vitals are normal. Suprapubic abdominal tenderness on exam, no guarding, no rebound, no rigidity, no peritoneal signs. UA is within normal limits. Urine came back positive. Labs ordered, hCG quant is 2843. OB ultrasound Uterus measures 9.3 x 5.8 x 5.6 cm with endometrial echocomplex measuring 2.4 cm. Couple tiny hypoechoic areas are seen within the uterus but no definite gestational sac and certainly no pole identified. Both ovaries appear unremarkable. No pelvic free fluid identified. Discussed findings with patient. Patient is in no acute distress, abdominal tenderness has resolved. Discussed the importance of close [facility] follow-up. Discussed return precautions. Advised patient May take Tylenol as needed for any pain. Increase your water intake. Take a vitamin [id number]. Follow-up with [facility]. You need to have a repeat hCG quant in 2 days. Return to emergency room for any new or worsening signs. Critical care attestation.: If time is entered above; I have spent that time in minutes in the direct care of this critically ill patient, excluding procedure time. ED Disposition Clinical Impression: Pelvic pain, Elevated serum hCG Disposition: HOME / SELF CARE / HOMELESS Is pt being admited?: No Does the pt Need Aspirin: No Condition: Stable Additional Instructions: May take Tylenol as needed for any pain. Increase your water intake. Take a vitamin [id number]. Follow-up with [facility]. You need to have a repeat hCG quant in 2 days. Return to emergency room for any new or worsening signs. Referrals: [facility] [Provider Group] - 2-3 Days Time of Disposition: 17:30 Print Language: TAJIK
[2021-06-28 15:40] LABS: HCG Qualitative,Urine Positive (Negative)
[2021-06-28 15:52] LABS: Mucus,Urine FEW /HPF
[2021-06-28 16:07] LABS: Bilirubin,Urine Negative (Negative); Blood,Urine Negative (Negative); Color,Urine Yellow (Yellow)
[2021-06-28 16:08] LABS: Protein,Urine <15 mg/dL mg/dL (Negative); Urobilinogen,Urine < 2.0 mg/dL (<2.0)
--- NOTE | 2021-06-28 16:25 | Ultrasound Report ---
Pelvic Ultrasound HISTORY: pelvic pain. TECHNIQUE: Grayscale and color imaging performed. COMPARISON: Pelvic ultrasound from 08/31/2020 FINDINGS: Transabdominal and endovaginal imaging was performed. Uterus measures 9.3 x 5.8 x 5.6 cm with endometrial echocomplex measuring 2.4 cm. Couple tiny hypoech oic areas are seen within the uterus but no definite gestational sac and certainly no pole iden tified. Both ovaries appear unremarkable. No pelvic free fluid identified. IMPRESSION: Uterine findings as above. Correlate with beta hCG level and if needed close ultrasound f ollow-up. Signer Name: Corey Polanco MD Signed: 06/28/2021 4:21 PM Workstation Name: [id number]
[2021-06-28 17:03] LABS: Basophils # (Auto) 0.1 K/mm3 (0.0-0.1); Eosinophils % (Auto) 0.5 % (0.0-4.3); Hematocrit 32.4 % (30.3-42.9); Hemoglobin 10.3 gm/dl (10.1-14.3); Lymphocytes # (Auto) 2.2 K/mm3 (1.2-5.4); Lymphocytes % (Auto) 24.7 % (13.4-35.0); Mean Corpuscular HGB Conc 32 % (30-34); Mean Corpuscular Volume 74 fl (79-97); Monocytes # (Auto) 0.4 K/mm3 (0.0-0.8); Monocytes % (Auto) 4.6 % (0.0-7.3); Platelet Count 276 K/mm3 (140-440); Red Cell Distribution Width 17.1 % (13.2-15.2)
[2021-06-28 17:22] LABS: Alanine Aminotransferase 15 units/L (7-56); Albumin 3.7 g/dL (3.9-5); Blood Urea Nitrogen 10 mg/dL (7-17); Calcium 8.4 mg/dL (8.4-10.2); Hemolysis Index 2
[2021-06-28 17:24] LABS: BUN/Creatinine Ratio 20
== END 2021-06-28 18:31 | disposition home or self-care (01) ==
LOC: ED 13:43
DX: O26.891 Other specified pregnancy related conditions, first trimester (principal); R10.2 Pelvic and perineal pain; R10.30 Lower abdominal pain, unspecified; R79.89 Other specified abnormal findings of blood chemistry; G89.29 Other chronic pain; Z79.899 Other long term (current) drug therapy; Z3A.00 Weeks of gestation of pregnancy not specified
CPT/HCPCS: 36415; 76830; 76856; 80053; 81001; 81025; 84702; 85025; 99284

== ENCOUNTER 2021-10-23 18:53 | Emergency (ER) | payer SELFPAY | END 2021-10-23 21:45 | disposition left against medical advice (07) | LOC: ED 18:53 | DX: R07.9 Chest pain, unspecified (principal); Z53.21 Procedure and treatment not carried out due to patient leaving prior to being seen by health care provider ==

== ENCOUNTER 2021-10-24 08:51 | Emergency (ER) | payer SELFPAY ==
[2021-10-24 09:09] VITALS: BP 131/84
[2021-10-24] MEDS ORDERED: KETOROLAC 10 MG TAB PO ONE (10:15)
--- NOTE | 2021-10-24 10:55 | XRay Report ---
CHEST 2 VIEWS INDICATION / CLINICAL INFORMATION: chest pain. COMPARISON: 03/29/2021 FINDINGS: SUPPORT DEVICES: None. HEART / MEDIASTINUM: No significant abnormality. LUNGS / PLEURA: No significant pulmonary or pleural abnormality. No pneumothorax. ADDITIONAL FINDINGS: No significant additional findings. IMPRESSION: 1. No acute findings. Signer Name: Daniel Viramontes DO Signed: 10/24/2021 10:50 AM Workstation Name: [id number]
--- NOTE | 2021-10-24 11:26 | Emergency Department Report ---
ED General Adult HPI - General Chief complaint: Chest Pain Stated complaint: CHEST/ BACK PAIN Time Seen by Provider: 10/24/21 10:14 Source: patient Mode of arrival: Ambulatory Limitations: No Limitations - History of Present Illness Initial comments: 26-year-old female with no past medical history presents to the emergency department for evaluation of chest pain. She states that she has had chest pain for the past year but today she felt like pain was worse. She describes pain as burning pressure in the center of her chest that radiates out to both sides. She denies shortness of breath, nausea, vomiting, dizziness, and fever. She states that pain radiates through to her back sometimes and with 7 out of 10 at its worst. She states that pain is worse with any type of movement or deep breaths or even someone touching her chest. She denies known family history of coronary artery disease. -: Gradual, year(s) (1) Location: chest Radiation: back Severity scale (0 -10): 7 Quality: burning, aching Consistency: constant Worsens with: movement Associated Symptoms: denies other symptoms. denies: chest pain, cough, diaphoresis, fever/chills, headaches, loss of appetite, malaise, nausea/vomiting, rash, seizure, shortness of breath, syncope, weakness - Related Data Previous Rx's Medication Instructions Recorded Last Taken Type cephALEXin [Keflex] 500 mg PO BID 7 Days #14 cap 08/31/20 Unknown Rx cefUROXime [Ceftin] 250 mg PO Q12H #10 tablet 09/25/20 Unknown Rx traMADoL [Ultram] 50 mg PO Q6HR PRN #14 tablet 09/25/20 Unknown Rx Famotidine [Pepcid] 20 mg PO BID #60 tablet 03/30/21 Unknown Rx Naproxen [EC-Naprosyn] 500 mg PO BID PRN #20 tablet. 03/30/21 Unknown Rx hydrOXYzine PAMOATE [Vistaril] 50 mg PO QHS PRN #30 capsule 03/30/21 Unknown Rx Naproxen [Naprosyn] 500 mg PO BID #14 tab 10/24/21 Unknown Rx Allergies Allergy/AdvReac Type Severity Reaction Status Date / Time No Known Allergies Allergy Verified 09/25/20 06:36 ED Review of Systems ROS: Stated complaint: CHEST/ BACK PAIN Other details as noted in HPI Comment: All other systems reviewed and negative Constitutional: denies: chills, diaphoresis, fever, malaise, weakness Eyes: denies: eye pain ENT: denies: ear pain Respiratory: denies: cough, orthopnea, shortness of breath, SOB with exertion, SOB at rest, stridor, wheezing Cardiovascular: chest pain. denies: palpitations, dyspnea on exertion, orthopnea, edema, syncope, paroxysmal nocturnal dyspnea Endocrine: no symptoms reported Gastrointestinal: denies: abdominal pain, nausea, vomiting, diarrhea, hematemesis, melena, hematochezia Genitourinary: denies: urgency, dysuria, frequency, hematuria Musculoskeletal: denies: back pain, joint swelling Skin: denies: rash, lesions Neurological: denies: headache, weakness, numbness, paresthesias, abnormal gait Psychiatric: denies: anxiety, depression Hematological/Lymphatic: denies: easy bleeding, easy bruising ED Past Medical Hx - Past Medical History Hx Psychiatric Treatment: Yes (Anxiety) Additional medical history: Morbid Obesity, chronic costochondritis - Social History Smoking Status: Never Smoker Substance Use Type: None - Medications Home Medications: Home Medications Medication Instructions Recorded Confirmed Last Taken Type cephALEXin [Keflex] 500 mg PO BID 7 Days #14 cap 08/31/20 Unknown Rx cefUROXime [Ceftin] 250 mg PO Q12H #10 tablet 09/25/20 Unknown Rx traMADoL [Ultram] 50 mg PO Q6HR PRN #14 tablet 09/25/20 Unknown Rx Famotidine [Pepcid] 20 mg PO BID #60 tablet 03/30/21 Unknown Rx Naproxen [EC-Naprosyn] 500 mg PO BID PRN #20 tablet.dr 03/30/21 Unknown Rx hydrOXYzine PAMOATE [Vistaril] 50 mg PO QHS PRN #30 capsule 03/30/21 Unknown Rx Naproxen [Naprosyn] 500 mg PO BID #14 tab 10/24/21 Unknown Rx ED Physical Exam - General Limitations: No Limitations General appearance: alert, in no apparent distress - Head Head exam: Present: atraumatic, normocephalic - Eye Eye exam: Present: normal appearance. Absent: conjunctival injection - Neck Neck exam: Present: normal inspection. Absent: tenderness, lymphadenopathy - Respiratory Respiratory exam: Present: normal lung sounds bilaterally, chest wall tenderness. Absent: respiratory distress, wheezes, rales, rhonchi, accessory muscle use, decreased breath sounds - Cardiovascular Cardiovascular Exam: Present: regular rate, normal heart sounds - GI/Abdominal GI/Abdominal exam: Present: soft, normal bowel sounds. Absent: distended, tenderness, guarding, rebound, rigid - Extremities Exam Extremities exam: Present: normal inspection - Back Exam Back exam: Present: normal inspection, full ROM. Absent: tenderness, CVA tenderness (R), CVA tenderness (L), muscle spasm, paraspinal tenderness, vertebral tenderness - Neurological Exam Neurological exam: Present: alert, oriented X3 - Psychiatric Psychiatric exam: Present: normal affect, normal mood, depressed - Skin Skin exam: Present: warm, dry, intact, normal color ED Course Vital Signs 10/24/21 09:05 Temperature 98.3 F Pulse Rate 66 Respiratory 18 Rate Blood Pressure 131/84 [Right] O2 Sat by Pulse 99 Oximetry ED Medical Decision Making - EKG Data EKG shows normal: sinus rhythm Rate: normal - EKG Data When compared to previous EKG there are: previous EKG unavailable Interpretation: no acute changes - Radiology Data Radiology results: report reviewed, image reviewed Chest x-ray IMPRESSION: 1. No acute findings. - Medical Decision Making 26-year-old female with no past medical history presents to the emergency department for evaluation of chest pain. She states that she has had chest pain for the past year but today she felt like pain was worse. She describes pain as burning pressure in the center of her chest that radiates out to both sides. She denies shortness of breath, nausea, vomiting, dizziness, and fever. She states that pain radiates through to her back sometimes and with 7 out of 10 at its worst. She states that pain is worse with any type of movement or deep breaths or even someone touching her chest. She denies known family history of coronary artery disease. EKG without any acute ischemic changes. Chest x-ray within normal limits. Patient will be treated for chest wall tenderness with naproxen 500 mg twice daily for the next 7 days. She was advised to follow-up with her primary care provider or cardiology for further evaluation. Critical care attestation.: If time is entered above; I have spent that time in minutes in the direct care of this critically ill patient, excluding procedure time. ED Disposition Clinical Impression: Chest wall pain Disposition: HOME / SELF CARE / HOMELESS Is pt being admited?: No Does the pt Need Aspirin: No Condition: Stable Instructions: Chest Wall Pain, [id number], Nonspecific Chest Pain, Adult Additional Instructions: Take medications as prescribed. Follow-up with cardiology for further ev aluation. Return to the emergency department for worsening symptoms. Prescriptions: Naproxen [Naprosyn] 500 mg PO BID #14 tab Referrals: ALISHA REDDY MD [Primary Care Provider] - 3-5 Days ANA MARÍA LLOYD MD [Staff Physician] - 3-5 Days Time of Disposition: 11:26
--- NOTE | 2021-10-24 17:34 | Electrocardiograph Report ---
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
--- NOTE | 2021-10-26 11:44 | Electrocardiograph Report ---
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
== END 2021-10-24 11:35 | disposition home or self-care (01) ==
LOC: ED 08:51
DX: R07.89 Other chest pain (principal); F41.9 Anxiety disorder, unspecified; Z79.899 Other long term (current) drug therapy
CPT/HCPCS: 71046; 93005; 93010; 99283